=== PATIENT | male | born 1945 | race Caucasian/White ===

== ENCOUNTER → 2021-07-21 | Outpatient (CLI) | payer MEDICARE | LOC: KOH-I 10:34 | DX: M25.572 Pain in left ankle and joints of left foot (principal); M21.862 Other specified acquired deformities of left lower leg | CPT/HCPCS: 73610 ==

== ENCOUNTER → 2021-08-20 | Outpatient (CLI) | payer MEDICARE | LOC: KOH-I 14:10 | DX: S82.491D Other fracture of shaft of right fibula, subsequent encounter for closed fracture with routine healing (principal) | CPT/HCPCS: 73610 ==